=== PATIENT | female | born 1955 | race Caucasian/White ===

== ENCOUNTER → 2017-04-10 | Outpatient (CLI) | payer OTHER | LOC: FIMAGING 13:16 | DX: Z12.31 Encounter for screening mammogram for malignant neoplasm of breast (principal) | CPT/HCPCS: G0202 ==

== ENCOUNTER 2017-10-18 13:44 | Inpatient (IN) | payer OTHER ==
[2017-10-18 14:11] LABS: PLATELET COUNT 500 10^3/uL (150-400)
--- NOTE | 2017-10-18 14:17 | EDPHY ---
H & P Stated Complaint: sent by for ruptured abbendix on CT Time Seen by Provider: 10/18/17 13:58 HPI/ROS: CHIEF COMPLAINT: Appendicitis HISTORY OF PRESENT ILLNESS: 61-year-old female presents with appendicitis, diagnosed on CT scan. 3 week history of right lower quadrant pain. She was seen by a physician and diagnosed with appendicitis. Initially placed on Cipro and later Flagyl was added to the regimen. She has had persistent right lower quadrant pain. She saw Dr. Borja at [facility] this morning and had an outpatient CT scan that demonstrated ruptured appendicitis. Tolerating oral fluids well. No fever today. REVIEW OF SYSTEMS: complete 10 point ROS negative except at noted in the HPI - Personal History Current Tetanus/Diphtheria Vaccine: Unsure Current Tetanus Diphtheria and Acellular Pertussis (TDAP): Unsure - Medical/Surgical History Hx Asthma: No Hx Chronic Respiratory Disease: No Hx Diabetes: No Hx Cardiac Disease: No Hx Renal Disease: No Hx Cirrhosis: No Hx Alcoholism: No Hx HIV/AIDS: No Hx Splenectomy or Spleen Trauma: No Other PMH: breast reduction, 3 - Social History Smoking Status: Never smoked - Physical Exam Exam: General Appearance: Alert, pleasant Eyes: Pupils equal and round, no conjunctival pallor ENT, Mouth: Mucous membranes moist Neck: Normal inspection Respiratory: Lungs are clear to auscultation Cardiovascular: Regular rate and rhythm Gastrointestinal: Abdomen is soft, right lower quadrant tenderness Neurological: A&O, nonfocal, normal gait Skin: Warm and dry Extremities: Normal inspection Psychiatric: Mood and affect normal Constitutional: Initial Vital Signs Temperature (C) 36.5 C 10/18/17 13:48 Heart Rate 84 10/18/17 13:48 Respiratory Rate 16 10/18/17 13:48 Blood Pressure 173/93 H 10/18/17 13:48 O2 Sat (%) 92 10/18/17 13:48 O2 Delivery Mode Room Air Allergies/Adverse Reactions: codeine Allergy (Verified 10/18/17 13:48) Home Medications: Medication Instructions Recorded Ciprofloxacin [Cipro] 500 mg PO BID 10/18/17 Timolol 0.25% [TIMOPTIC 0.25% (*)] 1 drops EACHEYE DAILY 10/18/17 metroNIDAZOLE [Flagyl 500 mg (*)] 500 mg PO BID 10/18/17 Medical Decision Making ED Course/Re-evaluation: This patient presents with ruptured appendicitis, diagnosed by CT scan earlier today. Unfortunately, the patient forgot to bring the CD of the CT scan and ate 1.[address] Sweeney who saw the patient in the emergency department. Levaquin and Flagyl IV given. Plan for appendectomy. Differential Diagnosis: Differential diagnosis includes though it is not limited to appendicitis, cholecystitis, diverticulitis, pyelonephritis, bowel perforation, small bowel obstruction. - Data Points Laboratory Results: Laboratory Results 10/18/17 14:00 10/18/17 14:00 10/18/17 10/18/17 14:00 14:00 WBC 7.14 10^3/uL 10^3/uL (3.80-9.50) RBC 4.00 10^6/uL L 10^6/uL (4.18-5.33) Hgb 11.5 g/dL L g/dL (12.6-16.3) Hct 35.4 % L % (38.0-47.0) MCV 88.5 fL fL (81.5-99.8) MCH 28.8 pg pg (27.9-34.1) MCHC 32.5 g/dL g/dL (32.4-36.7) RDW 13.2 % % (11.5-15.2) Plt Count 500 10^3/uL H 10^3/uL (150-400) MPV 9.3 fL fL (8.7-11.7) Neut % (Auto) 60.0 % % (39.3-74.2) Lymph % (Auto) 27.6 % % (15.0-45.0) [place] % (Auto) 9.4 % % (4.5-13.0) Eos % (Auto) 1.5 % % (0.6-7.6) Baso % (Auto) 0.4 % % (0.3-1.7) Nucleat RBC Rel Count 0.0 % % (0.0-0.2) Absolute Neuts (auto) 4.28 10^3/uL 10^3/uL (1.70-6.50) Absolute Lymphs (auto) 1.97 10^3/uL 10^3/uL (1.00-3.00) Absolute Monos (auto) 0.67 10^3/uL 10^3/uL (0.30-0.80) Absolute Eos (auto) 0.11 10^3/uL 10^3/uL (0.03-0.40) Absolute Basos (auto) 0.03 10^3/uL 10^3/uL (0.02-0.10) Absolute Nucleated RBC 0.00 10^3/uL 10^3/uL (0-0.01) Immature Gran % 1.1 % % (0.0-1.1) Immature Gran # 0.08 10^3/uL 10^3/uL (0.00-0.10) Sodium 144 mEq/L mEq/L (135-145) Potassium 4.2 mEq/L mEq/L (3.5-5.2) Chloride 103 mEq/L mEq/L (97-110) Carbon Dioxide 27 mEq/l mEq/l (22-31) Anion Gap 14 mEq/L mEq/L (8-16) BUN 10 mg/dL mg/dL (7-23) Creatinine 0.7 mg/dL mg/dL (0.6-1.0) Estimated GFR > 60 Glucose 110 mg/dL H mg/dL (70-100) Calcium 9.0 mg/dL mg/dL (8.5-10.4) Medications Given: Discontinued Medications Bupivacaine HCl (Sensorcaine 0.5% Vial) Confirm Administered Dose 30 ml .ROUTE .STK-MED ONE Stop: 10/18/17 15:49 Last Admin: 10/18/17 19:24 Dose: Not Given Fentanyl (Sublimaze) 25 - 100 mcg IVP Q5M PRN PRN Reason: PACU, IMMEDIATE Pain control Stop: 10/18/17 20:13 Last Admin: 10/18/17 21:03 Dose: 50 mcg Levofloxacin/Dextrose (Levaquin 750 Mg (Premix)) 150 mls @ 100 mls/hr IV EDNOW ONE PRN Reason: Protocol Stop: 10/18/17 17:15 Last Admin: 10/18/17 16:07 Dose: 150 mls Metronidazole/Sodium Chloride (Flagyl 500 Mg (Premix)) 100 mls @ 100 mls/hr IV EDNOW ONE PRN Reason: Protocol Stop: 10/18/17 16:45 Last Admin: 10/18/17 17:48 Dose: 100 mls Midazolam HCl (Versed) 2 mg IVP ONCALL ONE Stop: 10/18/17 18:28 Last Admin: 10/18/17 18:39 Dose: 2 mg Departure - Departure Disposition: [facility] Acute Clinical Impression: Acute appendicitis Qualifiers: Acute appendicitis type: with generalized peritonitis Qualified Code(s): K35.2 - Acute appendicitis with generalized peritonitis Condition: Fair
--- NOTE | 2017-10-18 15:22 | PDGENHP ---
History and Physical - Chief Complaint RLQ PAIN. 3 WEEKS OF RLQ PAIN, PREVIOUSLY VOMITING, tx'd witha week of orax - History of Present Illness History Information - Allergies/Home Medication List Allergies/Adverse Reactions: codeine Allergy (Verified 10/18/17 13:48) Home Medications: Ciprofloxacin [Cipro] 500 mg PO BID 10/18/17 [Last Taken 10/18/17] Timolol 0.25% [TIMOPTIC 0.25% (*)] 1 drops EACHEYE DAILY 10/18/17 [Last Taken ] metroNIDAZOLE [Flagyl 500 mg (*)] 500 mg PO BID 10/18/17 [Last Taken 10/18/17] I have personally reviewed and updated: family history - Social History Smoking Status: Never smoked Review of Systems Review of Systems: ROS: 10pt was reviewed & negative except for what was stated in HPI & below Physical Exam Physical Exam: Temp Pulse Resp BP Pulse Ox 36.4 C 70 18 140/82 H 94 10/18/17 15:00 10/18/17 15:00 10/18/17 15:00 10/18/17 15:00 10/18/17 15:00 Constitutional: no apparent distress Eyes: PERRL Cardiovascular: regular rate and rhythym Respiratory: clear to auscultation Gastrointestinal: other (tender rlq to midline, otherwis e soft) Genitourinary: no bladder fullness Skin: normal color Lab Data & Imaging Review 10/18/17 14:00 10/18/17 14:00 WBC 7.14 10^3/uL (3.80-9.50) 10/18/17 14:00 RBC 4.00 10^6/uL (4.18-5.33) L 10/18/17 14:00 Hgb 11.5 g/dL (12.6-16.3) L 10/18/17 14:00 Hct 35.4 % (38.0-47.0) L 10/18/17 14:00 MCV 88.5 fL (81.5-99.8) 10/18/17 14:00 MCH 28.8 pg (27.9-34.1) 10/18/17 14:00 MCHC 32.5 g/dL (32.4-36.7) 10/18/17 14:00 RDW 13.2 % (11.5-15.2) 10/18/17 14:00 Plt Count 500 10^3/uL (150-400) H 10/18/17 14:00 MPV 9.3 fL (8.7-11.7) 10/18/17 14:00 Neut % (Auto) 60.0 % (39.3-74.2) 10/18/17 14:00 Lymph % (Auto) 27.6 % (15.0-45.0) 10/18/17 14:00 [place] % (Auto) 9.4 % (4.5-13.0) 10/18/17 14:00 Eos % (Auto) 1.5 % (0.6-7.6) 10/18/17 14:00 Baso % (Auto) 0.4 % (0.3-1.7) 10/18/17 14:00 Nucleat RBC Rel Count 0.0 % (0.0-0.2) 10/18/17 14:00 Absolute Neuts (auto) 4.28 10^3/uL (1.70-6.50) 10/18/17 14:00 Absolute Lymphs (auto) 1.97 10^3/uL (1.00-3.00) 10/18/17 14:00 Absolute Monos (auto) 0.67 10^3/uL (0.30-0.80) 10/18/17 14:00 Absolute Eos (auto) 0.11 10^3/uL (0.03-0.40) 10/18/17 14:00 Absolute Basos (auto) 0.03 10^3/uL (0.02-0.10) 10/18/17 14:00 Absolute Nucleated RBC 0.00 10^3/uL (0-0.01) 10/18/17 14:00 Immature Gran % 1.1 % (0.0-1.1) 10/18/17 14:00 Immature Gran # 0.08 10^3/uL (0.00-0.10) 10/18/17 14:00 Sodium 144 mEq/L (135-145) 10/18/17 14:00 Potassium 4.2 mEq/L (3.5-5.2) 10/18/17 14:00 Chloride 103 mEq/L (97-110) 10/18/17 14:00 Carbon Dioxide 27 mEq/l (22-31) 10/18/17 14:00 Anion Gap 14 mEq/L (8-16) 10/18/17 14:00 BUN 10 mg/dL (7-23) 10/18/17 14:00 Creatinine 0.7 mg/dL (0.6-1.0) 10/18/17 14:00 Estimated GFR > 60 10/18/17 14:00 Glucose 110 mg/dL (70-100) H 10/18/17 14:00 Calcium 9.0 mg/dL (8.5-10.4) 10/18/17 14:00 Assessment & Plan Assessment: Acute appendicitis (Acute) prob ruptured appendix plan ex lap. for abscess and appendicits. risks of infection, bleeding, etc
[2017-10-18] MEDS ORDERED: BUPIVACAINE 0.5% 30 ML SDV ONE ×2 (15:48→21:19)
[2017-10-18] MEDS ORDERED: LR 1,000 ML IV ONE (18:01)
--- NOTE | 2017-10-18 18:24 | PDANEPAE ---
ANE History of Present Illness Probable perforated appy ANE Past Medical History - Pulmonary History Hx Oxygen in Use at Home: No Hx Sleep Apnea: Yes Sleep Apnea Screening Result - Last Documented: Positive - Endocrine History Hx Diabetes: No ANE Review of Systems Review of Systems: ANE Patient History - Allergies Allergies/Adverse Reactions: codeine Allergy (Verified 10/18/17 13:48) - Home Medications Home medications: home medication list seen and reviewed Home Medications: Ciprofloxacin [Cipro] 500 mg PO BID 10/18/17 [Last Taken 10/18/17] Timolol 0.25% [TIMOPTIC 0.25% (*)] 1 drops EACHEYE DAILY 10/18/17 [Last Taken ] metroNIDAZOLE [Flagyl 500 mg (*)] 500 mg PO BID 10/18/17 [Last Taken 10/18/17] - NPO status NPO Since - Liquids (Date): 10/18/17 NPO Since - Liquids (Time): 11:30 NPO Since - Solids (Date): 10/18/17 NPO Since - Solids (Time): 11:30 - Anes Hx Anes Hx: no prior problems - Smoking Hx Smoking Status: Never smoked ANE Labs/Vital Signs - Labs Result Diagrams: 10/18/17 14:00 10/18/17 14:00 - Vital Signs Blood Pressure: 149/92 Heart Rate: 68 Respiratory Rate: 14 O2 Sat (%): 95 Height: 170.18 cm Weight: 89.358 kg ANE Physical Exam - Airway Neck exam: FROM Mallampati Score: Class 1 Mouth exam: normal dental/mouth exam - Pulmonary Pulmonary: no respiratory distress - Cardiovascular Cardiovascular: regular rate and rhythym - ASA Status ASA Status: II, E ANE Anesthesia Plan Anesthesia Plan: general endotracheal anesthesia
[2017-10-18] MEDS ORDERED: MIDAZOLAM 2 MG/2 ML VIAL IVP ONE (18:27)
[2017-10-18] MEDS ORDERED: MIDAZOLAM 2 MG/2 ML VIAL ONE (18:29)
[2017-10-18] MEDS ORDERED: ROCURONIUM 50 MG/5 ML VIAL ONE ×2 (18:33→19:54)
[2017-10-18] MEDS ORDERED: PROPOFOL 200 MG/20 ML VIAL ONE (18:34)
[2017-10-18] MEDS ORDERED: fentaNYL 100 MCG/2 ML INJ ONE ×6 (18:34→21:55)
[2017-10-18] MEDS ORDERED: ONDANSETRON 4 MG/2 ML VIAL IVP PRN ×2 (19:13→21:02)
[2017-10-18] MEDS ORDERED: HYDROmorphONE/DILAUDID 2 MG/ML INJ IVP PRN ×2 (19:13→21:12)
[2017-10-18] MEDS ORDERED: NALOXONE HCL 0.4 MG/ML INJ IVP PRN ×2 (19:13→21:02)
[2017-10-18] MEDS ORDERED: PROMETHAZINE HCL 25 MG/ML INJ IVP PRN ×2 (19:13→21:02)
[2017-10-18] MEDS ORDERED: DEXAMETHASONE 4 MG/ML VIAL ONE (19:48)
[2017-10-18] MEDS ORDERED: ONDANSETRON 4 MG/2 ML VIAL ONE ×3 (20:37→22:32)
[2017-10-18] MEDS ORDERED: SUGAMMADEX SODIUM 200 MG/2 ML VIAL IVP ONE (20:37)
[2017-10-18] MEDS ORDERED: ACETAMINOPHEN 500 MG TAB PO PRN (21:02)
[2017-10-18] MEDS ORDERED: oxyCODONE IR 5 MG TAB PO PRN (21:02)
[2017-10-18] MEDS: fentaNYL 100 MCG/2 ML INJ IVP PRN ×7 (21:03→21:57)
--- NOTE | 2017-10-18 21:04 | POSTANESTH ---
Post Anesthetic Evaluation Cardiovascular Status: Normal, Stable, Similar to Pre-Op Cond Respiratory Status: Normal, Stable, Similar to Pre-op Cond. Level of Consciousness/Mental Status: Can Participate in Eval, Alert and Oriented Pain Control: Adequate, Prn Tx Ordered Nausea/Vomiting Control: Adequate, Prn Tx Ordered Complications Possibly Related to Anesthesia: None Noted
--- NOTE | 2017-10-18 21:06 | POSTOPPROG ---
Post Op Note Date of Operation: 10/18/17 Surgeon: Cory Sweeney Commission Sales Associate: coltraine Pre-op Diagnosis: ruptured appendix Post-op Diagnosis: mass in cecum Indication: rlq mass Procedure: right colecotmy Findings: mass, possible cancer of cecum Inf/Abcess present in the surg proc area at time of surgery?: No EBL: Minimal
[2017-10-18] MEDS ORDERED: HYDROmorphONE/DILAUDID 2 MG/ML INJ ONE (21:14)
[2017-10-18] MEDS: HYDROmorphONE/DILAUDID 2 MG/ML INJ IVP PRN ×5 (21:16→21:57)
--- NOTE | 2017-10-18 21:27 | GOP ---
[f rep st] OPERATIVE REPORT DATE OF OPERATION: SURGEON: Cory Sweeney MD VIDEO TAPE TRANSFERRER: Nilson Rodriguez, VIKASHA, LSA. ANESTHESIA: General. PREOPERATIVE DIAGNOSIS: Perforated appendicitis with abscess. POSTOPERATIVE DIAGNOSIS: Inflammatory mass cecum. No abscess. PROCEDURE PERFORMED: FINDINGS: INDICATIONS: The patient is a 61-year-old female who presents with a 3-week history of right lower q uadrant pain. A CT scan preoperatively had suggested possible ruptured appendicitis with an abscess. DESCRIPTION OF PROCEDURE: The abdomen was scrubbed with ChloraPrep and draped in the usual sterile f ashion. Palpation revealed a firm 10 cm mass just medial to McBurney's point. A midline incision wa s made through the umbilicus. Eventually this was lengthened further cephalad. Retraction was done w ith an Eugenio large wound retractor. The abdomen was opened and explored. Small bowel was brought up out of the pelvis and packed cephalad. The omentum was pushed cephalad. Inflammatory mass involvin g the cecum was noted. The cecal tip was deviated medially, but the whole mass was fairly unapproach able and welded in the retroperitoneum on the right. With the incision extended the right colon was m obilized at its more normal midportion and the hepatic flexure developed easily. The colon was broug ht medially identifying the duodenum. There was inflammation all the way up to the duodenum. Carefu l dissection allowed the colon to be brought completely medially at which point, the omentum was sepa rated from the hepatic flexure. It was felt that this could certainly be a perforated carcinoma of t he cecum, so it was felt reasonable to do a right colectomy. The mesocolon was opened near the hepat ic flexure. The right branch of the middle colic artery amputated with clamps and ties and then the mesentery harvested with clamps and ties. This was difficult because of the very thick, indurated na ture of the root of the mesentery. After all pedicles were tied, the ileocolic vessel was approached , clamped, and divided. The terminal ileum was amputated for few centimeters and the bowel transect ed with a stapling device. The transverse colon was also transected with a stapling device, and the specimen handed off the field. A search of the specimen suggested there might be an appendiceal stum p without the rest of the appendix, although the tissue was so necrotic, it was difficult to tell. A search in the right lower quadrant showed some inflammatory tissues which could be peeled off the re troperitoneum. There was quite a bit of reaction, and it was really unclear what was being removed, but this was submitted as a separate specimen called additional right lower quadrant tissues. It was felt it might have a portion of the distal appendix. The abdomen was irrigated with several liters of saline. Hemostasis was excellent and isoperistaltic anastomosis was done from the terminal ileum to the right transverse colon with a stapling device. The enterotomy was closed with a running 3-0 V icryl followed by interrupted 3-0 silk Lembert sutures. The mesenteric defect was closed to prevent internal hernias. With the anastomosis in the right upper quadrant all lap pads were removed. Hemos tasis was again evaluated and was excellent. A clean closure was practiced with all new drapes, glov es, gowns, instruments, etc. The linea alba was closed with a #1 PDS from either end, tied in the mi ddle. Then several liters of warm saline were used to irrigate the subcutaneous fat. Hemostasis ens ured and the skin closed with stainless steel clips. The patient tolerated the procedure well. SURGEON: Cory Sweeney MD. /[id number]/MODL
[2017-10-18] MEDS ORDERED: KETAMINE 200 MG/20 ML VIAL ONE (22:26)
[2017-10-18] MEDS ORDERED: DEXMEDETOMIDINE HCL 200 MCG/2 ML VIAL IV ONE (22:30)
[2017-10-18] MEDS: ONDANSETRON 4 MG/2 ML VIAL IVP PRN (23:30)
[2017-10-18] MEDS: LR 1,000 ML IV SCH (23:37)
[2017-10-19] MEDS ORDERED: NARCOTIC DRIP BAG-TOTAL ALL TYPES EP PRN (00:33)
[2017-10-19] MEDS ORDERED: NALOXONE HCL 0.4 MG/ML INJ IVP PRN (00:33)
[2017-10-19] MEDS: HEPARIN 5,000 UNIT/0.5 ML INJ SC SCH ×3 (05:50→20:51)
--- NOTE | 2017-10-19 06:20 | SOAPPROG ---
SOAP Progress Note Assessment/Plan: Assessment: Plan: Subjective: PAIN BETTER WITH EPIDURAL vss, af s/p right colectomy for mass- ddx is cancer versus inflammatory process. cont clear liq until passing flatus or stool Objective: Vital Signs Temp Pulse Resp BP Pulse Ox 36.6 C 61 18 127/75 H 97 10/19/17 02:53 10/19/17 04:11 10/19/17 02:53 10/19/17 04:11 10/19/17 04:11 10/18/17 10/19/17 10/20/17 05:59 05:59 05:59 Intake Total 1620 Output Total 145 Balance 1475 ICD10 Worksheet Patient Problems: Problems Problem Status Onset Acute appendicitis Acute
[2017-10-19] MEDS: DC NARCS MISC SCH (08:23)
[2017-10-19] MEDS: REGARDING ANTICOAG MISC SCH (08:23)
--- NOTE | 2017-10-19 08:25 | POSTANESTH ---
Post Anesthetic Evaluation Cardiovascular Status: Normal, Stable, Similar to Pre-Op Cond Respiratory Status: Normal, Stable, Similar to Pre-op Cond. Level of Consciousness/Mental Status: Can Participate in Eval, Alert and Oriented Pain Control: Adequate, Prn Tx Ordered Nausea/Vomiting Control: Adequate, Prn Tx Ordered Complications Possibly Related to Anesthesia: None Noted Notes: Pt seen and examined, POD1 s/p ex lap w colectomy, postop thoracic epidural placed, T7-8, DONTAE 6cm catheter 11 cm. Back site c/d/i, no e/e/e. Pain control much improved. Dermatome level ~T5-L1 B symmetric. Notes some itchiness but rates it as tolerable. No n/v. Plan: :Continue PCEA rate 6 cc/hr, bolus 3cc q 15min. :May ambulate with assistance. :Plan to maintain epidural for next days, will coordinate with surgical team as far as disposition plan. Will request to please hold heparin dose 6 hours prior to planned epidural d/c.
[2017-10-19] MEDS: LR 1,000 ML IV SCH ×2 (08:53→17:31)
[2017-10-19] MEDS ORDERED: TIMOLOL 0.25% 5 ML OPHT.BTL EACHEYE SCH (09:00)
[2017-10-19] MEDS ORDERED: ENOXAPARIN 40 MG/0.4 ML SYR SC SCH (09:00)
[2017-10-19] MEDS: TIMOLOL 0.5% 15 ML OPHT.BTL EACHEYE SCH (12:14)
[2017-10-19] MEDS: fentaNYL 200 MCG, BUPIVACAINE 0.5% 20 ML in NS 100 ML EP SCH ×2 (12:56→20:24)
--- NOTE | 2017-10-19 14:44 | PDMN ---
Medical Necessity Medical necessity: Pt meets INPT criteria per and [id number] Bowel Surgery: Colectomy, Partial (R colectomy).
[2017-10-19] MEDS: ACETAMINOPHEN 325 MG TAB PO PRN (17:12)
[2017-10-20] MEDS: PROMETHAZINE HCL 25 MG/ML INJ IVP PRN (02:06)
[2017-10-20] MEDS: HEPARIN 5,000 UNIT/0.5 ML INJ SC SCH ×3 (05:38→20:15)
[2017-10-20] MEDS: LR 1,000 ML IV SCH ×2 (05:38→16:58)
[2017-10-20] MEDS: ACETAMINOPHEN 325 MG TAB PO PRN ×2 (08:00→20:16)
[2017-10-20] MEDS: TIMOLOL 0.5% 15 ML OPHT.BTL EACHEYE SCH (08:02)
[2017-10-20] MEDS: DC NARCS MISC SCH (08:05)
[2017-10-20] MEDS: REGARDING ANTICOAG MISC SCH (08:05)
[2017-10-20] MEDS: fentaNYL 200 MCG, BUPIVACAINE 0.5% 20 ML in NS 100 ML EP SCH ×2 (08:05→16:54)
--- NOTE | 2017-10-20 09:36 | SOAPPROG ---
SOAP Progress Note Assessment/Plan: Assessment: Plan: 10/20/17 09:35 VSS, BUT TEMP 39 LUNGS CLEAR ABD SOFT LEGS WITHOUT PAIN OR SELLLING. HOPKINS IN LOOKS BETTER THAN FEVER WOULD SUGGEST=- WILL CHECK CXR AND URINE CULTURE ON ANCEF AND FLAGYL MAY BE ALL FROM ATELECTASIS DOING VERY WELL OTHEREWISE. Objective: Vital Signs Temp Pulse Resp BP Pulse Ox 39.3 C H 90 17 148/81 H 94 10/20/17 07:53 10/20/17 07:53 10/20/17 07:53 10/20/17 07:53 10/20/17 07:53 10/19/17 10/20/17 10/21/17 05:59 05:59 05:59 Intake Total 1620 3238 Output Total 145 1850 Balance 1475 1388 ICD10 Worksheet Patient Problems: Problems Problem Status Onset Acute appendicitis Acute
--- NOTE | 2017-10-20 16:34 | POSTANESTH ---
Post Anesthetic Evaluation Cardiovascular Status: Normal, Stable, Similar to Pre-Op Cond, Tx Over/Under Hydration Respiratory Status: Normal, Stable Level of Consciousness/Mental Status: Can Participate in Eval, Alert and Oriented Pain Control: Inadeq, Add Tx Required Nausea/Vomiting Control: Adequate, Prn Tx Ordered Complications Possibly Related to Anesthesia: None Noted Notes: S/P ex lap w/ colectomy, POD2, post-op epidural placed. Pt has noted an interval increase in pain. Has been pressing her bolus button often with some increased relief. Back site c/d/i, no e/e/e, catheter has migrated out to ~9.5 cm at the skin from 11 cm yesterday. Dermatome is T4-L2 on the R and T5-T10 on the L. Reports one episode of nausea, mild itchiness (tolerable). Plan: :Epidural catheter still in the epidural space AEB +dermatomes, though the outward migration of the catheter (likely from incidental pt movement) explains the newly one-sided quality. Will not manipulate the catheter at this time, but rather increase rate to 8cc/hr Bupi 0.1% fent 2 mcg/mL with bolus 4cc q 15 min; attempt to more effectively fill the space and cover the right side better. :Continue multi- modal pain control with tylenol, toradol, consider neurontin for any neuropathic pain. :will consider to wean from epidural and transition to PO pain meds tomorrow or Sunday. :will request to hold heparin dose at that time, then resume 2 hours later.
--- NOTE | 2017-10-20 17:40 | ASMTCMCOM ---
CM Note CM Note Notes: Pt had rt colectomy due to mass, which is inflammatory vs malignant. Results pending. DC needs unclear but too early to tell. Pt may be ready to DC Sun or Sun. CM to follow. Date Signed: 10/20/2017 05:40 PM Electronically Signed By:Anette Hills LCSW
[2017-10-21] MEDS: fentaNYL 200 MCG, BUPIVACAINE 0.5% 20 ML in NS 100 ML EP SCH ×3 (01:10→22:33)
[2017-10-21] MEDS: LR 1,000 ML IV SCH ×2 (01:14→15:28)
[2017-10-21] MEDS: PROMETHAZINE HCL 25 MG/ML INJ IVP PRN ×2 (02:29→07:51)
[2017-10-21] MEDS: ONDANSETRON 4 MG/2 ML VIAL IVP PRN ×2 (04:23→10:54)
[2017-10-21] MEDS: HEPARIN 5,000 UNIT/0.5 ML INJ SC SCH ×3 (05:33→22:14)
--- NOTE | 2017-10-21 07:53 | SOAPPROG ---
SOAP Progress Note Assessment/Plan: Assessment: Plan: 10/20/17 09:35 VSS, BUT TEMP 39 LUNGS CLEAR ABD SOFT LEGS WITHOUT PAIN OR SELLLING. HOPKINS IN LOOKS BETTER THAN FEVER WOULD SUGGEST=- WILL CHECK CXR AND URINE CULTURE ON ANCEF AND FLAGYL MAY BE ALL FROM ATELECTASIS DOING VERY WELL OTHEREWISE. Subjective: large emesis, no flatus. lungs clear- cxr yesterday pretty ormal. abd soft access: normal wbc, but with persistant temps. emesis troubling- will continue to monitor- may need repea ct, although unlikely anything acute. slower than expected course of improvement. Objective: Vital Signs Temp Pulse Resp BP Pulse Ox 37.7 C 88 16 137/80 H 95 10/21/17 04:00 10/21/17 04:00 10/21/17 04:00 10/21/17 04:00 10/21/17 04:00 10/20/17 10/21/17 10/22/17 05:59 05:59 05:59 Intake Total 5178 4013 Output Total 1400 1500 Balance 1388 2513 ICD10 Worksheet Patient Problems: Problems Problem Status Onset Acute appendicitis Acute
[2017-10-21] MEDS: TIMOLOL 0.5% 15 ML OPHT.BTL EACHEYE SCH (09:46)
[2017-10-21] MEDS: DC NARCS MISC SCH (09:48)
[2017-10-21] MEDS: REGARDING ANTICOAG MISC SCH (09:48)
--- NOTE | 2017-10-21 13:07 | POSTANESTH ---
Post Anesthetic Evaluation Cardiovascular Status: Normal, Stable, Similar to Pre-Op Cond Respiratory Status: Normal, Stable, Similar to Pre-op Cond. Level of Consciousness/Mental Status: Can Participate in Eval, Alert and Oriented Pain Control: Inadeq, Add Tx Required Nausea/Vomiting Control: Inadeq, Add Tx Reqired Complications Possibly Related to Anesthesia: None Noted Notes: POD#3 s/p ex lap/colectomy w/ PCEA. Pt rates pain control as good, 4-5/10, mainly associated with movement. Has had recent nausea and vomiting, temporally associated with PO liquid intake. Back site c/d/i, no e/e/e, catheter stable at 9.5 cm at the skin. Dermatone coverage unchanged from previous exam, R>L T4-L2 Plan: :Unable to tolerate PO at this time so transition to PO pain meds untenable. :Maintain PCEA bupi 0.1%/fent 2mcg/mL 8cc/hr bolus 4 cc q 15. :May ambulate with assistance. :Will revisit disposition of catheter tomorrow.
[2017-10-21] MEDS ORDERED: IOPAMIDOL (ISOVUE-300) 100 ML BTL ONE (13:08)
--- NOTE | 2017-10-21 15:40 | SOAPPROG ---
SOAP Progress Note Assessment/Plan: Assessment: Plan: 10/20/17 09:35 VSS, BUT TEMP 39 LUNGS CLEAR ABD SOFT LEGS WITHOUT PAIN OR SELLLING. HOPKINS IN LOOKS BETTER THAN FEVER WOULD SUGGEST=- WILL CHECK CXR AND URINE CULTURE ON ANCEF AND FLAGYL MAY BE ALL FROM ATELECTASIS DOING VERY WELL OTHEREWISE. Objective: ct done after large emesis- large stomach, dilated small bowel, but patent anastamosis- apparnet ileus. ng placed will wait for resolution prior to removing ng ' willaslo start ng replacemnt orders. Vital Signs Temp Pulse Resp BP Pulse Ox 37.0 C 81 18 144/91 H 95 10/21/17 15:08 10/21/17 15:08 10/21/17 15:08 10/21/17 15:08 10/21/17 15:08 Laboratory Results 10/21/17 08:55 10/20/17 10/21/17 10/22/17 05:59 05:59 05:59 Intake Total 3238 4013 Output Total 1850 1500 1999 Balance 1388 2513 -1999 ICD10 Worksheet Patient Problems: Problems Problem Status Onset Acute appendicitis Acute
[2017-10-21] MEDS ORDERED: NS 1,000 ML IV ONE (16:00)
[2017-10-22] MEDS: HEPARIN 5,000 UNIT/0.5 ML INJ SC SCH ×3 (05:56→21:49)
[2017-10-22] MEDS ORDERED: LR 1,000 ML IV SCH (06:30)
--- NOTE | 2017-10-22 06:39 | SOAPPROG ---
SOAP Progress Note Assessment/Plan: Assessment: Plan: 10/20/17 09:35 VSS, BUT TEMP 39 LUNGS CLEAR ABD SOFT LEGS WITHOUT PAIN OR SELLLING. HOPKINS IN LOOKS BETTER THAN FEVER WOULD SUGGEST=- WILL CHECK CXR AND URINE CULTURE ON ANCEF AND FLAGYL MAY BE ALL FROM ATELECTASIS DOING VERY WELL OTHEREWISE. Subjective: vss, fever seems gone. abd mildly distended. after initial 1100 mls out ng tube, very little over night. no flatus yet, lyes show elevated bicarb, k of 3.4. nees some saline for contraction alakalosis. access: slow recovery of ileus after r colectomy for missed perorated appendix versus tumor- pod 4. hopefully decreased ng output indicative of impending resolution. will give some additional saline and kcl. Objective: Vital Signs Temp Pulse Resp BP Pulse Ox 37.7 C 78 12 139/74 H 96 10/22/17 03:45 10/22/17 03:45 10/22/17 03:45 10/22/17 03:45 10/22/17 03:45 Laboratory Results 10/22/17 03:54 10/21/17 10/22/17 10/23/17 05:59 05:59 05:59 Intake Total 4013 1650 1527 Output Total 1500 3050 100 Balance 2513 -1400 1427 ICD10 Worksheet Patient Problems: Problems Problem Status Onset Acute appendicitis Acute
[2017-10-22] MEDS: D5W NS W/ 20 KCl/L 1,000 ML IV SCH ×2 (07:34→17:10)
[2017-10-22] MEDS: TIMOLOL 0.5% 15 ML OPHT.BTL EACHEYE SCH (07:45)
[2017-10-22] MEDS ORDERED: HYDROmorphONE/DILAUDID 1 MG/ML INJ IVP PRN ×2 (08:51→08:53)
--- NOTE | 2017-10-22 09:01 | POSTANESTH ---
Post Anesthetic Evaluation Cardiovascular Status: Normal, Stable, Similar to Pre-Op Cond Respiratory Status: Normal, Stable, Similar to Pre-op Cond. Level of Consciousness/Mental Status: Can Participate in Eval, Alert and Oriented Pain Control: Adequate, Prn Tx Ordered Nausea/Vomiting Control: Adequate, Prn Tx Ordered Complications Possibly Related to Anesthesia: None Noted Notes: POD4 s/p Partial colectomy, PCEA. Pt rates pain control as good. N/V have resolved, but ileus continues, NGT in place, no gas. Pt would like to d/c epidural in order to bathe. Back site c/d/i, no e/e/e. Plan:Hold PCEA infusion now. :Pull epidural at 1200 noon (6 hrs after heparin). Resume heparin 2 hrs later. :Ordered Dilaudid IVP PRN 0.2 q 2h and 0.4 q4h (severe pain, anticipated movement). :further pain management per surgical team.
[2017-10-22] MEDS ORDERED: HYDROmorphone HCL/NS 0.5 MG/ML SYR IVP PRN (09:32)
[2017-10-22] MEDS: HYDROmorphone HCL/NS 0.5 MG/ML SYR IVP PRN ×6 (09:56→22:41)
[2017-10-22] MEDS: REGARDING ANTICOAG MISC SCH (10:30)
[2017-10-22] MEDS: DC NARCS MISC SCH (10:30)
--- NOTE | 2017-10-22 16:18 | ASMTCMCOM ---
CM Note CM Note Notes: Chart reviewed. Likely ileus. NPO at present. Per therapies likely to be independent, plan still unclear. CM to follow, Plan: Likely home when medically cleared Date Signed: 10/22/2017 04:18 PM Electronically Signed By:Mala Velarde RN
[2017-10-22] MEDS ORDERED: 1/2 NS 1,000 ML IV ONE (18:30)
[2017-10-23] MEDS: HYDROmorphone HCL/NS 0.5 MG/ML SYR IVP PRN ×8 (00:34→20:45)
[2017-10-23] MEDS: D5W NS W/ 20 KCl/L 1,000 ML IV SCH (04:32)
[2017-10-23] MEDS: HEPARIN 5,000 UNIT/0.5 ML INJ SC SCH ×3 (06:31→21:02)
[2017-10-23] MEDS: REGARDING ANTICOAG MISC SCH (09:29)
[2017-10-23] MEDS: DC NARCS MISC SCH (09:29)
[2017-10-23] MEDS: TIMOLOL 0.5% 15 ML OPHT.BTL EACHEYE SCH (09:38)
--- NOTE | 2017-10-23 10:05 | SOAPPROG ---
SOAP Progress Note Assessment/Plan: Assessment: Plan: 10/20/17 09:35 VSS, BUT TEMP 39 LUNGS CLEAR ABD SOFT LEGS WITHOUT PAIN OR SELLLING. LEO IN LOOKS BETTER THAN FEVER WOULD SUGGEST=- WILL CHECK CXR AND URINE CULTURE ON ANCEF AND FLAGYL MAY BE ALL FROM ATELECTASIS DOING VERY WELL OTHEREWISE. Subjective: vss, af epidural out, leo out. abd soft, no flatus or stool yet. ng output down. today is day 5 post op- hopefully resolves ileus today! Objective: Vital Signs Temp Pulse Resp BP Pulse Ox 36.4 C 78 18 145/84 H 97 10/23/17 07:47 10/23/17 07:47 10/23/17 07:47 10/23/17 07:47 10/23/17 07:47 Microbiology 10/20/17 12:15 Urine Culture - Final Urine,Clean Catch Laboratory Results 10/23/17 04:14 10/22/17 10/23/17 10/24/17 05:59 05:59 05:59 Intake Total 1650 3032 1466 Output Total 3050 750 Balance -1400 2282 1466 ICD10 Worksheet Patient Problems: Problems Problem Status Onset Acute appendicitis Acute
[2017-10-24] MEDS: HYDROmorphone HCL/NS 0.5 MG/ML SYR IVP PRN ×2 (02:27→08:33)
[2017-10-24] MEDS: ACETAMINOPHEN 325 MG TAB PO PRN ×2 (04:02→15:27)
[2017-10-24] MEDS: HEPARIN 5,000 UNIT/0.5 ML INJ SC SCH ×3 (05:15→21:42)
[2017-10-24] MEDS: TIMOLOL 0.5% 15 ML OPHT.BTL EACHEYE SCH (08:34)
--- NOTE | 2017-10-24 08:51 | SOAPPROG ---
SOAP Progress Note Assessment/Plan: Assessment: Plan: 10/20/17 09:35 VSS, BUT TEMP 39 LUNGS CLEAR ABD SOFT LEGS WITHOUT PAIN OR SELLLING. [place] IN LOOKS BETTER THAN FEVER WOULD SUGGEST=- WILL CHECK CXR AND URINE CULTURE ON ANCEF AND FLAGYL MAY BE ALL FROM ATELECTASIS DOING VERY WELL OTHEREWISE. Subjective: no flatus or stool, no n or v Objective: Vital Signs Temp Pulse Resp BP Pulse Ox 36.8 C 70 17 147/88 H 99 10/24/17 07:20 10/24/17 07:20 10/24/17 07:20 10/24/17 07:20 10/24/17 07:20 Laboratory Results 10/24/17 04:48 10/23/17 10/24/17 10/25/17 05:59 05:59 05:59 Intake Total 3032 2523 Output Total 750 360 Balance 2282 2163 ng output only 200 pas t 24 hours- will clamp ng 4 hors and check residual. hopefully resolving ileus. not all that distednded. ICD10 Worksheet Patient Problems: Problems Problem Status Onset Acute appendicitis Acute
--- NOTE | 2017-10-24 10:10 | ASMTCMCOM ---
CM Note CM Note Notes: Pt's path back and she does not have a malignancy. PT/OT evals recommend SNF vs HC. Pt's insurance does not offer HC or SNF benefits. Waiting for pt's ileus to resolve. She may not need services at time of DC or may be willing to pay out of pocket. Per [employer], pt does not qualify for medicaid. Date Signed: 10/24/2017 10:09 AM Electronically Signed By:Anette Hills LCSW
[2017-10-24] MEDS: HYDROCODONE/APAP 5/325 TAB PO PRN (21:44)
[2017-10-25] MEDS: HYDROCODONE/APAP 5/325 TAB PO PRN (04:57)
[2017-10-25] MEDS: HEPARIN 5,000 UNIT/0.5 ML INJ SC SCH ×3 (04:57→20:39)
--- NOTE | 2017-10-25 06:31 | SOAPPROG ---
SOAP Progress Note Assessment/Plan: Assessment: Plan: dc home if does ok with full liq diet. follow up mon for staple removal. Subjective: no n or v tolerating liquid diet. Objective: Vital Signs Temp Pulse Resp BP Pulse Ox 37.2 C 82 16 118/92 H 95 10/25/17 04:00 10/25/17 04:00 10/25/17 04:00 10/25/17 04:00 10/25/17 04:00 Laboratory Results 10/25/17 04:44 10/24/17 10/25/17 10/26/17 05:59 05:59 05:59 Intake Total 2523 500 Output Total 360 5 Balance 2163 495 abd soft, non tender. wound with no sign of infection ICD10 Worksheet Patient Problems: Problems Problem Status Onset Acute appendicitis Acute
[2017-10-25] MEDS: TIMOLOL 0.5% 15 ML OPHT.BTL EACHEYE SCH (09:33)
[2017-10-25] MEDS: ACETAMINOPHEN 325 MG TAB PO PRN ×2 (14:57→20:40)
--- NOTE | 2017-10-25 15:39 | ASMTCMCOM ---
CM Note CM Note Notes: Met with pt to discuss DC needs. Pt has an insurance that does not cover any outpt services. Pt recs HC but it would cost pt $100/hr and she cannot afford it. She states that her fiance is able to assist her at home, she is getting a walker and shower chair and PT is showing her some home exercises. She also needs home O2 and feels that she can only afford one or the other. Pt will likely DC tomorrow. Date Signed: 10/25/2017 03:38 PM Electronically Signed By:Anette Hills LCSW
[2017-10-26] MEDS: HYDROCODONE/APAP 5/325 TAB PO PRN ×3 (03:14→12:40)
[2017-10-26] MEDS: HEPARIN 5,000 UNIT/0.5 ML INJ SC SCH ×2 (05:24→14:29)
[2017-10-26 08:14] VITALS: BP 156/89
[2017-10-26] MEDS: TIMOLOL 0.5% 15 ML OPHT.BTL EACHEYE SCH (09:50)
--- NOTE | 2017-10-26 16:18 | GDS ---
[f rep st] DISCHARGE SUMMARY HISTORY OF PRESENT ILLNESS: The patient was admitted with right lower quadrant pain. CT documented mass in the cecal area. HOSPITAL COURSE: The patient underwent exploration and a right colectomy performed for what ultimate ly proved to be a ruptured appendicitis. She had somewhat slow resolution of her ileus, but at the t avery of discharge is tolerating a regular diet and having bowel movements. FINAL DIAGNOSIS: Ruptured appendicitis. OPERATION: Right colectomy. DISPOSITION: Home. FOLLOWUP: With Dr. Sweeney in a week. /[id number]/MODL
== END 2017-10-26 16:27 | disposition home or self-care (01) | DRG 330 ==
LOC: OBSVTOIN 14:29 → FOB 16:40 → F1N 23:18
PROVIDERS: ADMIT Surgery; ATTEND Surgery
PROC: 0DTF0ZZ Resection of Right Large Intestine, Open Approach (ICD-10-PCS; principal; 2017-10-18 20:30)
DX: K35.2 Acute appendicitis with generalized peritonitis (principal); K91.89 Other postprocedural complications and disorders of digestive system
CPT/HCPCS: 96365; 96366; 97110-GP; 97116-GP; 97161-GP; 97166-GO; 97530-GP; 97535-GO; G8987-GO-CL; G8988-GO-CJ; G8989-GO-CI; J0690; J1100; J1170; J1200; J1644; J1956; J2250; J2405; J2550; J2704; J3010; Q9967

== ENCOUNTER 2018-05-23 11:42 | Inpatient (IN) | payer OTHER ==
--- NOTE | 2018-05-22 20:15 | GHP ---
CHIEF COMPLAINT: Incisional hernia. PRESENT ILLNESS: Patient previously had an emergent right colectomy, for what proved to be an abscess of the cecum, approximately 6 months ago. She now presents with a painful large incisional hernia to the right of midline. PAST MEDICAL HISTORY: ALLERGIES: Codeine. CURRENT MEDICATIONS: Timolol eye drops. SOCIAL HISTORY: Nonsmoker. No alcohol use. PREVIOUS SURGERY: Exploratory laparotomy, right colectomy. REVIEW OF SYSTEMS: Denies asthma, heart trouble, lung disease, epilepsy, rheumatic fever. PHYSICAL EXAM: HEENT: Within normal limits. LUNGS: Clear. HEART: Normal S1 , S2, without murmur. ABDOMEN: Soft, benign. Midline incision and a large hernia when Valsalva or coughing, to the right of midline. I estimate the gap at 7 or 8 cm. ASSESSMENT: Symptomatic incisional hernia. RECOMMENDATIONS: Open inguinal hernia repair. This will likely be done with a posterior retrorectus dissection and Shi-Stoppa repair using posterior rectus mesh placement. Risks and benefits were explained to the patient, including the potential for infection, bleeding, postoperative discomfort, and recurrence. /[id number]/MODL MTDD
[2018-05-23] MEDS ORDERED: LIDOCAINE 1% 2 ML INJ ID PRN (14:21)
[2018-05-23] MEDS ORDERED: LR 1,000 ML IV ONE (14:21)
[2018-05-23] MEDS ORDERED: DEXAMETHASONE 4 MG/ML VIAL ONE (14:56)
[2018-05-23] MEDS ORDERED: LIDOCAINE 2% 5 ML SDV ONE (14:56)
[2018-05-23] MEDS ORDERED: ONDANSETRON 4 MG/2 ML VIAL ONE (14:56)
[2018-05-23] MEDS ORDERED: ROCURONIUM 100 MG/10 ML VIAL ONE (14:56)
[2018-05-23] MEDS ORDERED: fentaNYL 250 MCG/5 ML INJ ONE (14:56)
[2018-05-23] MEDS ORDERED: PROPOFOL 200 MG/20 ML VIAL ONE (14:56)
[2018-05-23] MEDS ORDERED: MIDAZOLAM 2 MG/2 ML VIAL IVP ONE (15:02)
[2018-05-23] MEDS ORDERED: HYDROmorphONE/DILAUDID 2 MG/ML INJ IVP PRN ×2 (15:03→16:54)
[2018-05-23] MEDS ORDERED: METOCLOPRAMIDE 10 MG/2 ML VIAL IVP PRN (15:03)
[2018-05-23] MEDS ORDERED: oxyCODONE IR 5 MG TAB PO PRN (15:03)
[2018-05-23] MEDS ORDERED: fentaNYL 100 MCG/2 ML INJ IVP PRN ×2 (15:03→16:54)
[2018-05-23] MEDS ORDERED: NALOXONE HCL 0.4 MG/ML INJ IVP PRN ×3 (15:03→17:00)
[2018-05-23] MEDS ORDERED: LR 500 ML IV PRN ×2 (15:03→16:54)
[2018-05-23] MEDS ORDERED: ONDANSETRON 4 MG/2 ML VIAL IVP PRN ×3 (15:03→16:54)
[2018-05-23] MEDS ORDERED: PROMETHAZINE HCL 25 MG/ML INJ IVP PRN ×2 (15:03→16:54)
[2018-05-23] MEDS ORDERED: PHENYLEPHRINE HCL 100 MCG/ML SYR IVP PRN (15:03)
[2018-05-23] MEDS ORDERED: BUPIVACAINE 0.5% 30 ML SDV ONE ×2 (15:07→16:13)
[2018-05-23] MEDS ORDERED: POLYMYXIN B SULFATE 500,000 UNIT/10 ML SYR IRR ONE (15:07)
[2018-05-23] MEDS ORDERED: BACITRACIN 50,000 UNITS/10 ML SYR IRR ONE (15:07)
--- NOTE | 2018-05-23 15:21 | PDANEPAE ---
ANE History of Present Illness here for Ventral hernia repair ANE Past Medical History - Cardiovascular History Hx Hypertension: No Hx Arrhythmias: No Hx Chest Pain: No Hx Coronary Artery / Peripheral Vascular Disease: No Hx CHF / Valvular Disease: No Hx Palpitations: No - Pulmonary History Hx COPD: No Hx Asthma/Reactive Airway Disease: No Hx Recent Upper Respiratory Infection: No Hx Oxygen in Use at Home: No Hx Sleep Apnea: Yes Sleep Apnea Screening Result - Last Documented: Positive Pulmonary History Comment: CAL uses CPAP - Neurologic History Hx Cerebrovascular Accident: No Hx Seizures: No Hx Dementia: No - Endocrine History Hx Diabetes: No - Renal History Hx Renal Disorders: No - Liver History Hx Hepatic Disorders: No - Neurological & Psychiatric Hx Hx Neurological and Psychiatric Disorders: No Neurological / Psychiatric History Comment: hx depression - Cancer History Hx Cancer: No - Congenital Disorder History Hx Congenital Disorders: No - GI History Hx Gastrointestinal Disorders: No - Other Health History Other Health History: glaucoma - Surgical History Prior Surgeries: explor lap 10/26 ANE Review of Systems Review of systems is: negative Review of Systems: - Exercise capacity Exercise capacity: >=4 METS METS (RN): 4 METS ANE Patient History - Allergies Allergies/Adverse Reactions: codeine Allergy (Verified 05/23/18 14:28) Hallucinations - Home Medications Home medications: home medication list seen and reviewed Home Medications: Timolol 0.5% [TIMOPTIC 0.5% (*)] 1 drops EACHEYE DAILY 10/19/17 [Last Taken 05/28] C/E/Zn/Cu/OM3/DHA/EPA/LUT/ZEAX [Preservision Areds 2 Softgel] 1 each PO DAILY [Last Taken 05/21/18] - NPO status NPO Status: no food or drink >8 hours NPO Since - Liquids (Date): 05/23/18 NPO Since - Liquids (Time): 12:00 NPO Since - Solids (Date): 05/22/18 NPO Since - Solids (Time): 21:00 - Anes Hx Anes Hx: no prior problems - Smoking Hx Smoking Status: Never smoked - Family Anes Hx Family Hx Anesthesia Complications: none ANE Labs/Vital Signs - Vital Signs Blood Pressure: 157/94 Heart Rate: 73 Respiratory Rate: 18 O2 Sat (%): 96 Height: 170.18 cm Weight: 90.718 kg ANE Physical Exam - [facility] - Pulmonary Pulmonary: no respiratory distress - Cardiovascular Cardiovascular: regular rate and rhythym - ASA Status ASA Status: II ANE Anesthesia Plan Anesthesia Plan: general endotracheal anesthesia, epidural
[2018-05-23] MEDS ORDERED: fentaNYL 100 MCG/2 ML INJ ONE ×2 (15:24→18:25)
[2018-05-23] MEDS ORDERED: PROPOFOL/EMULSION 500 MG/50 ML BOTTLE IV ONE ×2 (15:26→16:05)
--- NOTE | 2018-05-23 15:41 | PDHPUP ---
History & Physical Update H&P update statement: This history and physical update is based on an assessment of the patient which was completed after admission or registration (within 24 hours), but prior to the surgery/procedure. [email or web address] H&P update: H&P reviewed & patient examined, no change in patient's condition since H&P completed H&P changes: none
[2018-05-23] MEDS ORDERED: ceFAZolin 1 GM VIAL ONE ×2 (16:11)
[2018-05-23] MEDS ORDERED: ROCURONIUM 50 MG/5 ML VIAL ONE (16:15)
[2018-05-23] MEDS ORDERED: BUPIVACAINE 0.25% 10 ML SDV ONE ×2 (16:22→18:15)
[2018-05-23] MEDS ORDERED: ALBUTEROL 3 ML DEYVIAL IH PRN (16:54)
[2018-05-23] MEDS ORDERED: DIAZEPAM 5 MG/ML 1 ML SYR IVP PRN (16:54)
[2018-05-23] MEDS ORDERED: DEXAMETHASONE 4 MG/ML VIAL IVP PRN (16:54)
[2018-05-23] MEDS ORDERED: SUGAMMADEX SODIUM 200 MG/2 ML VIAL IVP ONE (17:55)
--- NOTE | 2018-05-23 18:50 | POSTOPPROG ---
Post Op Note Date of Operation: 05/23/18 Surgeon: Cory Sweeney Live Source Operator: george shepherd Pre-op Diagnosis: incidisonaol hernia Post-op Diagnosis: same Indication: same Procedure: incisinal henria repair- rive stop[place]oleon, with bilateral anterior component sep Findings: distais rectii, large inciisonal hernia Inf/Abcess present in the surg proc area at time of surgery?: No
[2018-05-23] MEDS: fentaNYL 2MCG/ML/BUP 0.1% RTU 100 ML EP SCH (18:55)
[2018-05-23] MEDS: MEPERIDINE 25 MG/0.5 ML AMP IVP PRN ×2 (18:55→19:49)
[2018-05-23] MEDS ORDERED: MEPERIDINE 25 MG/0.5 ML AMP ONE ×2 (18:56→19:47)
--- NOTE | 2018-05-23 19:00 | POSTANESTH ---
Post Anesthetic Evaluation Cardiovascular Status: Normal, Stable Respiratory Status: Normal, Stable Level of Consciousness/Mental Status: Can Participate in Eval Pain Control: Adequate, Prn Tx Ordered Nausea/Vomiting Control: Adequate, Prn Tx Ordered Complications Possibly Related to Anesthesia: None Noted
[2018-05-23] MEDS ORDERED: MEPERIDINE 25 MG/0.5 ML AMP IVP ONE (19:01)
[2018-05-23] MEDS ORDERED: HYDROmorphONE/DILAUDID 1 MG/ML INJ IVP PRN (19:02)
[2018-05-23] MEDS: KETOROLAC 15 MG/1 ML SDV IVP SCH (22:19)
[2018-05-23] MEDS: LR 1,000 ML IV SCH (22:21)
[2018-05-24] MEDS: KETOROLAC 15 MG/1 ML SDV IVP SCH ×2 (00:17→05:19)
--- NOTE | 2018-05-24 05:16 | PDMN ---
Medical Necessity Medical necessity: [facility] [place] [id number] her[place] repair- INPT for very large hernia req inpt monitoring OP: open ventral hernia repair -large : incisional hernia repair, rive stoppa, with bilateral anterior component separation
[2018-05-24] MEDS: fentaNYL 2MCG/ML/BUP 0.1% RTU 100 ML EP SCH ×2 (05:53→18:35)
[2018-05-24] MEDS: LR 1,000 ML IV SCH (06:16)
--- NOTE | 2018-05-24 07:49 | GOP ---
DATE OF OPERATION: 05/23/2018 SURGEON: Cory Sweeney MD PHYSICAL MEDICINE TEACHER: AI Carvalho, MAURIZIOA. PREOPERATIVE DIAGNOSIS: Large incisional hernia. POSTOPERATIVE DIAGNOSIS: Large incisional hernia. PROCEDURE PERFORMED: Incisional hernia repair with retrorectus mesh placement, bilateral anterior co mponent separation. FINDINGS: INDICATIONS: The patient underwent a right colectomy, for what proved to be an abscess of the right colon 6 months ago, now presents with a large defect to the right of midline. DESCRIPTION OF PROCEDURE: General anesthetic. The abdomen scrubbed with ChloraPrep, draped in usual sterile fashion. The midline incision was opened eventually to its full length, and the hernia sac defined and largely excised. There was quite a broad defect there, and upon identifying the edge of the rectus sheath, it was found that the patient had quite a wide diastasis recti further complicatin g the potential to bring the midline together. Eventually attenuated tissue was removed such that th e medial edge of the rectus sheath was defined on both sides and then opened allowing dissection in a retrorectus plane leaving the muscle anteriorly and creating a posterior flap all the way back to th e semilunar line. This was done on either side, and while this did advance the midline it was still insufficient to allow closure. Therefore, an anterior component separation was done initially on the right by undermining the subcutaneous fat until the edge of the rectus sheath was identified. 1 cm lateral to this an incision was made in the external oblique, carried superiorly all the way up over the costal margin and inferiorly almost to the pubis. This gave quite an advancement, but it was sti ll felt it was under tension, so a similar anterior component separation was done on the left side as well. With this done, the posterior rectus sheath was closed to cover the viscera completely and se parated from the mesh. The distance between rectus sheaths from one semilunar line to the other was measured with a ruler, and then an appropriate piece of polypropylene mesh covered the area behind th e rectus muscles on both sides. After this mesh was placed, no fixation sutures were placed, but the anterior rectus sheath was closed over this with running 0 Prolene. With the retrorectus mesh place ment completed, inspection for hemostasis was done, the wound was irrigated with saline, and 4 Jackso n-Noriega drains were placed 2 on each side. To prevent large seroma collections from forming despite the drains, numerous pleating sutures of 2-0 Vicryl were used both to isolate each drain into its own channel and to bring the subcutaneous fat down toward the midline closure. After this tedious placem ent of multiple quilting sutures, the skin was closed with stainless steel clips, drain sutured in pl mirtha. The patient had an epidural anesthetic, tolerated the procedure. /[id number]/MODL
--- NOTE | 2018-05-24 09:52 | SOAPPROG ---
SOAP Progress Note Assessment/Plan: Assessment: Plan: Subjective: pod 1 complicated henria repair. vss, af drains already clearing up to serous. binder in place. assess: kelle post op course complicated ventral henria reapir. epidural working. cont presen tcare, start on clear liquid diet, leave leo in while epidural in. Objective: Vital Signs Temp Pulse Resp BP Pulse Ox 37.2 C 81 16 112/59 L 89 L 05/24/18 07:47 05/24/18 07:47 05/24/18 07:47 05/24/18 07:47 05/24/18 07:47 05/23/18 05/24/18 05/25/18 05:59 05:59 05:59 Intake Total 1970 Output Total 495 Balance 1475 ICD10 Worksheet Patient Problems: Problems Problem Status Onset Acute appendicitis Acute
[2018-05-24] MEDS: REGARDING ANTICOAG MISC SCH (10:11)
[2018-05-24] MEDS: DC NARCS MISC SCH (10:11)
--- NOTE | 2018-05-24 10:44 | ASMTCMCOM ---
CM Note CM Note Notes: Pt is a 62 y/o female admitted for a ventral hernia. Pt went to surgery w/ Dr. Sweeney. Pt should not have any d/c needs. No therapies ordered at this time. CM available for changes. Plan: Independent Date Signed: 05/24/2018 10:43 AM Electronically Signed By:PETE Rendon
--- NOTE | 2018-05-24 14:31 | PDPAINCON ---
Pain Management Consultation - Subjective Pain at rest (/10): 2 Pain with activity (/10): 3 Pain is: under control Activity: out of bed with assistance - Objective Technique: continuous epidural Continuous infusion: bupivicaine Catheter site: clean, dry, intact, no erythema/edema/exudate Sensory and motor exam: consistent with block (Pt doing well. Great pain control with epidural. Levels at T6-T11. Continue with current management) Vital signs: stable - Assessment/Plan Assessment/Plan: pain well-controlled, continue current mgmt
[2018-05-25] MEDS: fentaNYL 2MCG/ML/BUP 0.1% RTU 100 ML EP SCH ×2 (05:57→13:20)
[2018-05-25] MEDS: HEPARIN 5,000 UNIT/0.5 ML INJ SC SCH ×3 (06:25→21:44)
--- NOTE | 2018-05-25 07:07 | SOAPPROG ---
SOAP Progress Note Assessment/Plan: Assessment: slowly advance diet. cont epidural untilat least tomorrow. Plan: 05/25/18 07:06 Subjective: little pain, passsing flatus. Objective: Vital Signs Temp Pulse Resp BP Pulse Ox 37.1 C 86 17 135/72 H 91 L 05/25/18 04:00 05/25/18 04:00 05/25/18 04:00 05/25/18 04:00 05/25/18 04:00 05/24/18 05/25/18 05/26/18 05:59 05:59 05:59 Intake Total 1970 1848 Output Total 495 655 Balance 1475 1193 abd soft, velcro binder in place, drains serous. ICD10 Worksheet Patient Problems: Problems Problem Status Onset Acute appendicitis Acute
[2018-05-25] MEDS ORDERED: ENOXAPARIN 40 MG/0.4 ML SYR SC SCH (09:00)
[2018-05-25] MEDS: PRESERVISION AREDS2 FORMULA EYE VIT 1 EACH PO SCH (09:29)
[2018-05-25] MEDS: DC NARCS MISC SCH (09:30)
[2018-05-25] MEDS: TIMOLOL 0.5% 15 ML OPHT.BTL EACHEYE SCH (09:30)
[2018-05-25] MEDS: REGARDING ANTICOAG MISC SCH (09:31)
--- NOTE | 2018-05-25 18:13 | SOAPPROG ---
SOAP Progress Note Assessment/Plan: Assessment: S/P Ventral Hernia Repair with Thoracic epidural. Doing well with minimal pain. Plan: 05/25/18 18:11 Subjective: Reports 3/10 pain. Only hitting PCEA button occasionally. No Side effects of nausea or itching. Objective: Vital Signs Temp Pulse Resp BP Pulse Ox 36.9 C 82 14 116/69 91 L 05/25/18 15:27 05/25/18 15:27 05/25/18 15:27 05/25/18 15:27 05/25/18 15:27 05/24/18 05/25/18 05/26/18 05:59 05:59 05:59 Intake Total 1970 1848 Output Total 158 652 650 Balance 1475 1193 -650 Epidural site clean dry dressing intact with no pain on palpation over site - Time Spent With Patient Time Spent With Patient: 15 minutes ICD10 Worksheet Patient Problems: Problems Problem Status Onset Acute appendicitis Acute
[2018-05-26] MEDS: fentaNYL 2MCG/ML/BUP 0.1% RTU 100 ML EP SCH ×3 (01:01→21:26)
[2018-05-26] MEDS: HEPARIN 5,000 UNIT/0.5 ML INJ SC SCH (06:24)
--- NOTE | 2018-05-26 08:38 | SOAPPROG ---
SOAP Progress Note Assessment/Plan: Assessment/Plan: 62-year-old woman post up from ventral hernia repair with component separation myocutaneous advancement flap. Thoracic epidural for pain control. Had a small bowel movement last night. Tolerating a diet. Pain well controlled. Encourage ambulation. Out of bed. Incision clean dry and intact SACHA serosanguineous. Likely removed epidural today or tomorrow go convert her to oral medications at that time. 05/26/18 08:37 Objective: Vital Signs Temp Pulse Resp BP Pulse Ox 37.0 C 76 16 127/74 H 96 05/26/18 08:00 05/26/18 08:00 05/26/18 08:00 05/26/18 08:00 05/26/18 08:00 05/25/18 05/26/18 05/27/18 05:59 05:59 05:59 Intake Total 1848 200 Output Total 386 760 50 Balance 1193 -760 150 ICD10 Worksheet Patient Problems: Problems Problem Status Onset Acute appendicitis Acute
[2018-05-26] MEDS: PRESERVISION AREDS2 FORMULA EYE VIT 1 EACH PO SCH (09:02)
[2018-05-26] MEDS: TIMOLOL 0.5% 15 ML OPHT.BTL EACHEYE SCH (09:02)
[2018-05-26] MEDS: REGARDING ANTICOAG MISC SCH (09:03)
[2018-05-26] MEDS: DC NARCS MISC SCH (09:03)
--- NOTE | 2018-05-26 12:18 | SOAPPROG ---
SOAP Progress Note Assessment/Plan: Assessment: well, appearing, site CDI, VSS on O2, pain under control, no side effects Plan: will start po pain meds prn, continue epidural until tomorrow, heparin on hold for epidural removal tomorrow 05/26/18 12:17 Subjective: post op day 3 ventral hernia repair Objective: Vital Signs Temp Pulse Resp BP Pulse Ox 37.0 C 76 16 127/74 H 96 05/26/18 08:00 05/26/18 08:00 05/26/18 08:00 05/26/18 08:00 05/26/18 08:00 05/25/18 05/26/18 05/27/18 05:59 05:59 05:59 Intake Total 1848 200 Output Total 651 760 50 Balance 1193 -277 150 - Time Spent With Patient Time Spent With Patient: 10 min - Pending Discharge Pending Discharge Within 48 Hours: Yes Pending Discharge Date: 05/28/18 Pending Discharge Time: 11:00 ICD10 Worksheet Patient Problems: Problems Problem Status Onset Acute appendicitis Acute
--- NOTE | 2018-05-27 07:46 | SOAPPROG ---
SOAP Progress Note Assessment/Plan: Assessment: doing well after componenet separation hernia repair. drains to stay in another several days. epidural out todeay. home n 1-2 days Plan: dc epidural today., dc leo 05/25/18 07:06 05/27/18 07:45 Subjective: little pain Objective: Vital Signs Temp Pulse Resp BP Pulse Ox 37.2 C 68 16 122/73 H 99 05/27/18 03:28 05/27/18 03:28 05/27/18 03:28 05/27/18 03:28 05/27/18 03:28 05/26/18 05/27/18 05/28/18 05:59 05:59 05:59 Intake Total 500 Output Total 760 1480 35 Balance -760 -980 -35 [place] line clean, noerthema. drains putting out suprisingly little serous fluid. ICD10 Worksheet Patient Problems: Problems Problem Status Onset Acute appendicitis Acute
[2018-05-27] MEDS: DC NARCS MISC SCH (08:02)
[2018-05-27] MEDS: REGARDING ANTICOAG MISC SCH (08:02)
[2018-05-27] MEDS: TIMOLOL 0.5% 15 ML OPHT.BTL EACHEYE SCH (08:03)
[2018-05-27] MEDS: PRESERVISION AREDS2 FORMULA EYE VIT 1 EACH PO SCH (08:06)
[2018-05-27] MEDS: fentaNYL 2MCG/ML/BUP 0.1% RTU 100 ML EP SCH (08:28)
--- NOTE | 2018-05-27 14:22 | ASMTCMCOM ---
CM Note CM Note Notes: CM discussed with Heydi GUTHRIE, likely will discharge independent with no needs. CM to follow. Plan: Independent. Date Signed: 05/26/2018 03:34 PM Electronically Signed By:Mariam Gaviria
--- NOTE | 2018-05-27 16:19 | PDPAINCON ---
Pain Management Consultation Patient referred by : Zahra - Subjective Pain at rest (/10): 1 Pain with activity (/10): 4 Pain is: low, well controlled Activity: out of bed with assistance - Objective Technique: continuous epidural Catheter site: clean, dry, intact, no erythema/edema/exudate Sensory and motor exam: consistent with block Vital signs: stable - Assessment/Plan Assessment/Plan: other (epidural catheter removed easily with intact tip. Patient to continue pain management with PO opioids as per Dr. Sweeney.)
[2018-05-27] MEDS: OXYCODONE/APAP 5/325 TAB PO PRN (19:19)
[2018-05-27] MEDS: oxyCODONE IR 5 MG TAB PO PRN (23:22)
[2018-05-28] MEDS: OXYCODONE/APAP 5/325 TAB PO PRN (03:33)
[2018-05-28] MEDS: HEPARIN 5,000 UNIT/0.5 ML INJ SC SCH ×2 (05:30→16:48)
[2018-05-28] MEDS: REGARDING ANTICOAG MISC SCH (07:18)
[2018-05-28] MEDS: DC NARCS MISC SCH (07:18)
--- NOTE | 2018-05-28 07:20 | GDS ---
The patient was admitted with a complex right-sided abdominal wall hernia as well as significant quiles tasis recti. HOSPITAL COURSE: Patient underwent incisional hernia repair with a retrorectus mass placement as wel l as bilateral anterior component separations. At the time of discharge, her drainage has decreased markedly. She is ambulating. Epidural was removed yesterday. She is tolerating [place] only. FINAL DIAGNOSIS: Incisional hernia. OPERATION: As above. DISPOSITION: Home. FOLLOW UP: With Dr. Sweeney in a week. /[id number]/MODL
[2018-05-28] MEDS: oxyCODONE IR 5 MG TAB PO PRN ×3 (08:19→16:45)
[2018-05-28] MEDS: PRESERVISION AREDS2 FORMULA EYE VIT 1 EACH PO SCH (08:19)
[2018-05-28] MEDS: TIMOLOL 0.5% 15 ML OPHT.BTL EACHEYE SCH (08:20)
[2018-05-28 16:26] VITALS: BP 154/91
== END 2018-05-28 17:51 | disposition home or self-care (01) | DRG 353 ==
LOC: F3N 13:58 → F3E 15:08
PROVIDERS: ADMIT Surgery; ATTEND Surgery
PROC: 0WUF0JZ Supplement Abdominal Wall with Synthetic Substitute, Open Approach (ICD-10-PCS; principal; 2018-05-23 15:00)
DX: K43.2 Incisional hernia without obstruction or gangrene (principal); Q79.59 Other congenital malformations of abdominal wall; G47.33 Obstructive sleep apnea (adult) (pediatric); H40.9 Unspecified glaucoma; Z87.19 Personal history of other diseases of the digestive system; Z09 Encounter for follow-up examination after completed treatment for conditions other than malignant neoplasm
CPT/HCPCS: 97116-GP; 97161-GP; 97165-GO; 97530-GO; 97535-GO; C1781; J0690; J1100; J1644; J1885; J2175; J2250; J2405; J2704; J3010

== ENCOUNTER → 2018-07-31 | Outpatient (CLI) | payer OTHER | LOC: FIMAGING 12:22 | DX: Z12.31 Encounter for screening mammogram for malignant neoplasm of breast (principal) ==